=== PATIENT | female | born 1935 | race Caucasian/White ===

== ENCOUNTER 2020-08-09 09:50 | Emergency (ER) | payer MEDICARE, OTHER, SELFPAY ==
[2020-08-09] VITALS (10 sets, daily range): BP systolic 131–151; BP diastolic 63–102; PULSE 60–90; RESP 14–26; TEMP 36.7; O2SAT 98–100; BMI 28.3
--- NOTE | 2020-08-09 10:08 | DI.CT.S_ITS ---
PROCEDURE: CT HEAD/BRAIN WO CON INDICATIONS: neuro change TECHNIQUE: Noncontrast 4.5 mm thick angled axial sections acquired from the foramen magnum to the vertex, with coronal and sagittal reformats. For radiation dose reduction, the following was used: automated exposure control, adjustment of mA and/or kV according to patient size. COMPARISON: [facility], CT, HEAD WITHOUT CONTRAST, 04/09/2010, 13:16. [facility], CT, HEAD WITHOUT CONTRAST, 04/04/2014, 12:51. FINDINGS: Image quality: Excellent. CSF spaces: Basal cisterns are patent. No extra-axial fluid collections. Ventricles are normal in size and shape. Brain: No midline shift. No intracranial masses or hemorrhage. No area of hypodensity in a large vascular distribution to suggest acute infarction. Severe periventricular hypodensity most consistent with chronic microvascular ischemic change, not significantly changed. Age-related parenchymal loss. Skull and face: Calvarium and visualized facial bones are intact, without suspicious lesions. Sinuses: Visualized sinuses and mastoids are clear. IMPRESSION: No acute intracranial abnormality. Consider brain MRI for further evaluation. Dictated by: Ernesto Monique M.D. on 08/09/2020 at 9:43 Approved by: Ernesto Monique M.D. on 08/09/2020 at 9:47
--- NOTE | 2020-08-09 10:08 | DI.RAD.S_ITS ---
PROCEDURE: XR CHEST 1V INDICATIONS: chest pain TECHNIQUE: One view of the chest was acquired. COMPARISON: None. FINDINGS: Surgical changes and devices: Cholecystectomy clips. Lungs and pleura: Lungs are clear. No pleural effusions or pneumothorax. Mediastinum: Mediastinal contours are within normal limits. Elevation of the right hemidiaphragm. Heart size is normal. Bones and chest wall: No suspicious bony lesions. Overlying soft tissues appear unremarkable. IMPRESSION: No acute cardiopulmonary abnormality. Dictated by: Ernesto Monique M.D. on 08/09/2020 at 9:50 Approved by: Ernesto Monique M.D. on 08/09/2020 at 9:50
[2020-08-09 10:26] LABS: Add Manual Diff / Slide Review NO; Basophils Absolute Auto 100 /uL (0-100); Basophils Percent Auto 1.2 % (0-2); Eosinophils Absolute Auto 500 /uL (0-450); Eosinophils Percent Auto 8.7 % (2-4); Hematocrit 35.6 % (36-46); Lymphocytes Absolute Auto 1400 /uL (1100-4500); Lymphocytes Percent Auto 26.9 % (25-40); Mean Corpuscular HGB Conc 33.7 % (30-36); Mean Corpuscular Hemoglobin 32.6 PG (26-34); Mean Corpuscular Volume 96.8 fL (80-100); Monocytes Absolute Auto 700 /uL (0-900); Monocytes Percent Auto 12.2 % (3-14); Neutrophils Absolute Auto 2700 /uL (1500-7000); Platelet Count 255 X10^3/uL (150-400); Red Blood Cell Count 3.68 X10^6/uL (4.0-5.2); Red Cell Distribution Width 14.6 % (11.6-14.8); White Blood Cell Count 5.4 X10^3/uL (4.5-11.0)
--- NOTE | 2020-08-09 10:26 | ED.CHESTPAIN ---
HPI - Chest Pain General Chief Complaint: Chest Pain Stated Complaint: THINKS STROKE OR HEART ATTACK Time Seen by Provider: 08/09/20 10:13 Source: patient and family (Daughter) Mode of arrival: Wheelchair Limitations: altered mental status and other (Daughter gave majority of history) History of Present Illness HPI narrative: This is an 84-year-old female who was brought in by her daughter after an episode around 9:00 a.m. this morning where she heard her mother sneezing multiple times, this was right around the patient was eating her breakfast she walked into the room patient seemed to be struggling and having saliva coming from her mouth she is grabbing at her arm in her chest and she states that her dog mother was acting very strangely. Patient has a history of dementia which is quite severe, patient can not give one-word answers but typically just as we, she requires 24 hour care. Daughter states that she does not know what to do with toilet paper anymore, she will flush feces down the sink. She states that there has not been any recent fevers or chills, no recent cold cough or congestion. She states her mother's always short of breath that has not been any new change. No recent abdominal pain, she states possibly a couple days ago. She had a normal bowel movement 2 days ago. She noted urine has been cloudy but no other major changes. She does state her mother seems like she has to try hard to urinate. She states she woke up about 730 this morning was walking and moving without issue they had breakfast and then this episode occurred. She states her mother's return to normal she states that the episodes seem to last about 40 minutes. She is on citalopram as well as another medication for itching. She has history of some dyslipidemia but is not on medications. Has had multiple orthopedic surgeries and had osteomyelitis in her left lower extremity where she had multiple surgeries for this as a child and has chronic drop foot. Primary care is through [facility]. Related Data Home Medications Medication Instructions Recorded Confirmed OMEPRAZOLE 20 mg PO QDAY #0 11/18/09 Previous Rx's Medication Instructions Recorded cephalexin [Keflex] 500 mg PO BID 5 Days #10 cap 08/09/20 Review of Systems Review of Systems ROS Unobtainable: All systems reviewed & are unremarkable except as noted in HPI and below Patient History Medical History (Updated 08/09/20 @ 13:18 by Sujatha Maloney DO) Dementia Social History Smoking Status: Never smoker Smoking Status: Never smoker alcohol intake frequency: 0-2 drinks per day Substance Use Type: does not use Exam Narrative Exam Narrative: GEN: well nourished, well appearing female, alert, able to tell me her name but cannot give other information, patient appears to be in mild distress. HEENT: Atraumatic, pupils are equal round reactive to light, extraocular movements are intact, nares are clear, TMs are clear with no fluid, there is no conjunctival pallor. Throat is clear without any exudates, erythema, tonsillar enlargement or uvular deviation, no facial droop. HEART: Regular rate and rhythm without murmur, clicks, rubs. Pulses are equal in upper and lower extremities LUNGS:Lungs clear to auscultation, no wheezes, rales, crackles, chest moves symmetrically, a tachycardia or tachypnea. No cough appreciated. ABD:bowel sounds normal, soft, non-tender, no guarding, rebound, rigidity, no masses noted, no hepatosplenomegaly :No CVA tenderness MSCL: Non-tender, no muscle atrophy, muscles strength 5/5 upper and lower extremities. Patient does wear a brace for her left foot to prevent foot drop. NEURO:CN 2-12 intact, sensation normal, [id number] was difficult to obtain as patient has difficulty following commands. Unable to obtain heel-noriega. Initial Vital Signs Initial Vital Signs: Vital Signs Temperature 98.0 F 08/09/20 10:16 Pulse Rate 67 08/09/20 10:16 Respiratory Rate 14 08/09/20 10:16 Blood Pressure 145/78 H 08/09/20 10:16 Pulse Oximetry 99 08/09/20 10:16 Scores GCS Otoniel coma scale eye opening: Spontaneous Otoniel coma scale verbal response: Confused Otoniel coma scale motor response: Obey commands [place] coma scale total score: 14 Course Orders Ordered: ED Orders 08/09/20 12:20 EKG-12 Lead Routine 08/09/20 12:32 Troponin I Stat 08/09/20 13:10 Urine Culture Stat Urine Microscopic Stat Vital Signs Vital signs: Vital Signs - 8 hr 08/09/20 12:00 08/09/20 12:01 08/09/20 12:30 Pulse Rate 66 67 65 Respiratory Rate 22 24 26 H Blood Pressure 137/63 150/69 H Pulse Oximetry 100 100 100 08/09/20 13:00 08/09/20 13:30 Pulse Rate 90 88 Respiratory Rate 24 16 Blood Pressure 151/102 H 144/77 H Pulse Oximetry 98 MDM - Chest Pain Lab Data Attestation: I reviewed the patient's lab results. Result diagrams: 08/09/20 10:12 08/09/20 10:12 Labs: Lab Results 08/09/20 08/09/20 08/09/20 Range/Units 10:12 10:12 10:12 WBC 5.4 (4.5-11.0) X10^3/uL RBC 3.68 L (4.0-5.2) X10^6/uL Hgb 12.0 (12.0-16.0) g/dL Hct 35.6 L (36-46) % MCV 96.8 (80-100) fL MCH 32.6 (26-34) PG MCHC 33.7 (30-36) % RDW 14.6 (11.6-14.8) % Plt Count 255 (150-400) X10^3/uL Neut % (Auto) 51.0 (50-75) % Lymph % (Auto) 26.9 (25-40) % [place] % (Auto) 12.2 (3-14) % Eos % (Auto) 8.7 H (2-4) % Baso % (Auto) 1.2 (0-2) % Neut # (Auto) 2700 (3575-5761) /uL Lymph # (Auto) 1400 (2968-7901) /uL [place] # (Auto) 700 (0-900) /uL Eos # (Auto) 500 H (0-450) /uL Baso # (Auto) 100 (0-100) /uL PT 12.1 (10.1-12.7) SECONDS INR 1.0 (0.9-1.3) APTT 44 H (26.4-36.2) SECONDS Sodium 139 (137-145) mmol/L Potassium 3.7 (3.4-5.1) mmol/L Chloride 111 H (98-107) mmol/L Carbon Dioxide 23 (22-32) mmol/L BUN 22 H (7-17) mg/dL Creatinine 0.98 (0.52-1.04) mg/dL Estimated GFR 54.1 L (>60) mL/min BUN/Creatinine Ratio 22.4 H (6-22) Glucose 99 (80-110) mg/dL Calcium 9.0 (8.4-10.2) mg/dL Total Bilirubin 0.4 (0.2-1.3) mg/dL AST 42 H (14-36) IU/L ALT 26 (<35) IU/L Alkaline Phosphatase 174 H (38-126) U/L Total Creatine Kinase 164 H (30-135) U/L CK-MB (CK-2) 4.30 H (<2.37) ng/mL CK-MB (CK-2) Rel Index 2.6 (1.5-5.0) % Troponin I < 0.012 (0.01-0.034) ng/mL Total Protein 7.9 (6.3-8.2) g/dL Albumin 3.9 (3.5-5.0) g/dL Globulin 4.0 (1.7-4.1) g/dL Albumin/Globulin Ratio 1.0 (1.0-2.8) Lipase 62 (23-300) U/L Urine RBC (0-5/HPF) Urine WBC (0-5/HPF) Urine Bacteria (None) Ur Culture Indicated? 08/09/20 08/09/20 Range/Units 12:32 13:10 WBC (4.5-11.0) X10^3/uL RBC (4.0-5.2) X10^6/uL Hgb (12.0-16.0) g/dL Hct (36-46) % MCV (80-100) fL MCH (26-34) PG MCHC (30-36) % RDW (11.6-14.8) % Plt Count (150-400) X10^3/uL Neut % (Auto) (50-75) % Lymph % (Auto) (25-40) % [place] % (Auto) (3-14) % Eos % (Auto) (2-4) % Baso % (Auto) (0-2) % Neut # (Auto) (5673-2331) /uL Lymph # (Auto) (6974-3716) /uL [place] # (Auto) (0-900) /uL Eos # (Auto) (0-450) /uL Baso # (Auto) (0-100) /uL PT (10.1-12.7) SECONDS INR (0.9-1.3) APTT (26.4-36.2) SECONDS Sodium (137-145) mmol/L Potassium (3.4-5.1) mmol/L Chloride (98-107) mmol/L Carbon Dioxide (22-32) mmol/L BUN (7-17) mg/dL Creatinine (0.52-1.04) mg/dL Estimated GFR (>60) mL/min BUN/Creatinine Ratio (6-22) Glucose (80-110) mg/dL Calcium (8.4-10.2) mg/dL Total Bilirubin (0.2-1.3) mg/dL AST (14-36) IU/L ALT (<35) IU/L Alkaline Phosphatase (38-126) U/L Total Creatine Kinase (30-135) U/L CK-MB (CK-2) (<2.37) ng/mL CK-MB (CK-2) Rel Index (1.5-5.0) % Troponin I < 0.012 (0.01-0.034) ng/mL Total Protein (6.3-8.2) g/dL Albumin (3.5-5.0) g/dL Globulin (1.7-4.1) g/dL Albumin/Globulin Ratio (1.0-2.8) Lipase (23-300) U/L Urine RBC 5-10/hpf H (0-5/HPF) Urine WBC >100/hpf H (0-5/HPF) Urine Bacteria Many (>30) H (None) Ur Culture Indicated? Specimen cultured Urine Dip Bedside Urine Glucose Negative Bedside Urine Bilirubin - Negative Bedside Urine Ketone - Negative Urine Specific [place] 1.020 Bedside Urine Occult Blood +/- Bedside Urine pH 6.0 Bedside Urine Protein +/- 15 Bedside Urine Urobilinogen - Negative Bedside Urine Nitrite - Negative Bedside Urine Leukocytes ++ [address] scan - head: Radiologist's Impression: [address] [id number] Scan ReportSigned Patient: Rosy Ragland LMR#: [id number]: 6Acct:[id number]/Sex: 84 / FDate of Service: 08/09/20Lo: EDAccession Number: [id number] Procedure: CT head/brain wo con Ordering Provider: Sujatha Maloney D.O. PROCEDURE: CT HEAD/BRAIN WO CON INDICATIONS: neuro change TECHNIQUE: Noncontrast 4.5 mm thick angled axial sections acquired from the foramen magnum to the vertex, with coronal and sagittal reformats. For radiation dose reduction, the following was used: automated exposure control, adjustment of mA and/or kV according to patient size. COMPARISON: [facility], CT, HEAD WITHOUT CONTRAST, 04/09/2010, 13:16. [facility], CT, HEAD WITHOUT CONTRAST, 04/04/2014, 12:51. FINDINGS: Image quality: Excellent. CSF spaces: Basal cisterns are patent. No extra-axial fluid collections. Ventricles are normal in size and shape. Brain: No midline shift. No intracranial masses or hemorrhage. No area of hypodensity in a large vascular distribution to suggest acute infarction. Severe periventricular hypodensity most consistent with chronic microvascular ischemic change, not significantly changed. Age-related parenchymal loss. Skull and face: Calvarium and visualized facial bones are intact, without suspicious lesions. Sinuses: Visualized sinuses and mastoids are clear. IMPRESSION: No acute intracranial abnormality. Consider brain MRI for further evaluation. Dictated by: Ernesto Monique M.D. on 08/09/2020 at 9:43 Approved by: Ernesto Monique M.D. on 08/09/2020 at 9:47 Chest x-ray: Radiologist's Impression: [address] [id number] ReportSigned Patient: Rosy Ragland LMR#: [id number]: 6Acct:[id number]/Sex: 84 / FDate of Service: 08/09/20Loc: EDAccession Number: [id number] Procedure: XR chest 1V Ordering Provider: Sujatha Maloney D.O. PROCEDURE: XR CHEST 1V INDICATIONS: chest pain TECHNIQUE: One view of the chest was acquired. COMPARISON: None. FINDINGS: Surgical changes and devices: Cholecystectomy clips. Lungs and pleura: Lungs are clear. No pleural effusions or pneumothorax. Mediastinum: Mediastinal contours are within normal limits. Elevation of the right hemidiaphragm. Heart size is normal. Bones and chest wall: No suspicious bony lesions. Overlying soft tissues appear unremarkable. IMPRESSION: No acute cardiopulmonary abnormality. Dictated by: Ernesto Monique M.D. on 08/09/2020 at 9:50 Approved by: Ernesto Monique M.D. on 08/09/2020 at 9:50 ECG Data Attestation: I personally reviewed and interpreted this ECG as follows: Prior ECG tracings: not available for review Interpretation: Sinus rhythm rate of 63, FL 156, QRS of 92 and QTC 444. No significant ST changes appreciated nonspecific change. No prior. EKG 2. Shows a rate of 64, FL 164, QRS of 92 and QTC of 431. No acute ST changes appreciated patient patient has nonspecific change noted today. MDM Narrative Medical decision making narrative: What sounds like almost choking or possibly a food bolus was approximately 20-30 minutes after she had eaten after further discussion with her daughter. She had Cheerios for breakfast. Patient did not have any obvious facial droop. No obvious lateralizing symptoms. She has difficulty following commands with difficult to fully evaluate for NIH but her episode does not sound classically like a CVA or TIA. She was sort of clutching at her chest while having saliva from her mouth. Head CT does not show acute change, this does not rule out CVA. Which was discussed with the family. Chest x-ray shows no acute changes. Patient is currently asymptomatic. Patient's other labs show some mild abnormalities and Initial EKG and troponin as well as repeat are negative with no acute changes. Urine does show leuks but no nitrates it is unclear if this could be the cause of patient's symptoms today but bladder infections are known to cause altered mental status I and I would recommend starting antibiotics before culture has returned. Discharge Plan Departure Patient Disposition: Home Clinical Impression: Altered mental status, UTI (urinary tract infection) Activity Restrictions/Additional Instructions: Your labs and imaging today do not show any major abnormalities other than in your urine possibly shows a bladder infection. It is unclear if the possible bladder infection is the cause of today's symptoms but I would go ahead and treat it as they can often cause patient's to be confused or altered. Urine was sent for culture. Take antibiotics as prescribed until they are gone. Return to the ER for fevers, recurrent confusion or altered mental status from baseline, lightheadedness, passing out, new chest pain, shortness of breath, persistent vomiting, black or bloody stools, new weakness, difficulty with movement, ambulation or other new or concerning symptoms. Prescriptions: New cephalexin [Keflex] 500 mg capsule 500 mg PO BID 5 Days Qty: 10 RF: 0 No Action OMEPRAZOLE 20 mg PO QDAY Qty: 0 RF: 0
[2020-08-09 10:34] LABS: Prothrombin Time 12.1 SECONDS (10.1-12.7)
[2020-08-09 10:37] LABS: PTT Partial Thromboplastin Tim 44 SECONDS (26.4-36.2)
[2020-08-09 10:59] LABS: Alanine Aminotransferase 26 IU/L (<35); Albumin 3.9 g/dL (3.5-5.0); Alkaline Phosphatase 174 U/L (38-126); Aspartate Aminotransferase 42 IU/L (14-36); BUN Creatinine Ratio 22.4 (6-22); Bilirubin Total 0.4 mg/dL (0.2-1.3); Blood Urea Nitrogen 22 mg/dL (7-17); Carbon Dioxide 23 mmol/L (22-32); Chloride 111 mmol/L (98-107); Creatine Kinase 164 U/L (30-135); Estimated Glomerular Filt Rate 54.1 mL/min (>60); Glucose 99 mg/dL (80-110); HEMOLYSIS < 15 (0-50); Lipase 62 U/L (23-300); Potassium 3.7 mmol/L (3.4-5.1); Sodium 139 mmol/L (137-145); Total Protein 7.9 g/dL (6.3-8.2)
[2020-08-09 11:10] LABS: Troponin I < 0.012 ng/mL (0.01-0.034)
[2020-08-09 11:14] LABS: CKMB % Relative Index 2.6 % (1.5-5.0)
[2020-08-09 13:07] LABS: Troponin I < 0.012 ng/mL (0.01-0.034)
[2020-08-09 13:44] LABS: Bacteria Urine Many (>30); Culture Indicated Urine Specimen Cultured; RBC Urine 5-10/HPF (0-5/HPF); WBC Urine >100/HPF (0-5/HPF)
== END 2020-08-09 13:30 | disposition home or self-care (01) ==
PROVIDERS: Emergency Provider Emergency Medicine
DX: R41.82 Altered mental status, unspecified (principal); N39.0 Urinary tract infection, site not specified; R07.9 Chest pain, unspecified; F03.90 Unspecified dementia, unspecified severity, without behavioral disturbance, psychotic disturbance, mood disturbance, and anxiety
CPT/HCPCS: 36415; 70450; 71045; 80053; 81003; 81015; 82550; 82553; 83690; 84484; 85025; 85610; 85730; 87077; 87086; 87186; 93005; 93010; 99283; 99284